=== PATIENT | female | born 1975 | race Caucasian/White ===

== ENCOUNTER 2023-08-24 12:02 | Emergency (ER) | payer OTHER, SELFPAY ==
[2023-08-24 12:11] VITALS: BP 157/101; PULSE 90; RESP 20; TEMP 36.9; O2SAT 98
--- NOTE | 2023-08-24 12:32 | ED.WOUNDLAC ---
HPI - Wound/Laceration General Chief Complaint: Wound/Laceration Stated Complaint: R forearm laceration Time Seen by Provider: 08/24/23 12:10 Source: patient Mode of arrival: ambulatory Limitations: no limitations History of Present Illness HPI narrative: This is a 48 year old female that presents to the ER for a laceration to the right forearm sustained just prior to arrival. Reports she accidentally cut it with a blade trying to cut plastic. Reports bleeding and pain to the area. Denies decreased ROM or numbness. Related Data Allergies Allergy/AdvReac Type Severity Reaction Status Date / Time ketorolac Allergy Intermediate Hives / Unverified 03/09/16 12:53 Red Face codeine AdvReac Intermediate Unverified 03/09/16 12:53 Review of Systems Review of Systems: CONSTITUTIONAL: Denies fever SKIN: Reports laceration NEUROLOGIC: Denies numbness, or weakness. All systems reviewed & are unremarkable except as noted in HPI and below PMFSH Past Medical History Medical History (Updated 08/24/23 @ 14:34 by Magali Boo PA-C) History of depression Social History Social History (Updated 08/24/23 @ 12:36 by Magali Boo PA-C) Smoking status: Current every day smoker Exam Narrative: GENERAL: Well-appearing, well-nourished, and in no acute distress. HEAD: Normocephalic, atraumatic. EYES: EOMI. EXTREMITIES: Normal range of motion in the right hand and wrist. No edema. Right forearm volar surface with 2.5 cm linear laceration into subcutaneous tissue SKIN: Warm, dry, no rash. NEURO: No focal deficits. Alert and oriented x3. PSYCH: Normal mood and affect Course Course Emergency Course: patient educated on wound care Vital Signs Vital signs: Vital Signs Temperature 98.4 F 08/24/23 12:11 Pulse Rate 90 08/24/23 12:11 Respiratory Rate 20 08/24/23 12:11 Blood Pressure 157/101 H 08/24/23 12:11 Pulse Oximetry 98 08/24/23 12:11 Temperature 98.4 F 08/24/23 12:11 Pulse Rate 90 08/24/23 12:11 Respiratory Rate 20 08/24/23 12:11 Blood Pressure 157/101 H 08/24/23 12:11 Pulse Oximetry 98 08/24/23 12:11 Procedures Laceration Laceration 1: Date: 08/24/23 Time: 14:36 Site: upper extremity Side (If applicable): right Size (cm): 2.5 Description: linear Depth: simple, single layer Local Anesthetic: lidocaine 1% and with epi Amount of anesthesia used (mL): 4 Pre-repair: wound explored and irrigated ====== Skin Level ====== Skin layer closed with: nylon Size (cm): 4-0 Number of sutures: 4 Technique: simple, interrupted ====== Subcutaneous Layer ====== ====== Muscle Layer ====== ====== Tendon Layer ====== MDM - Wound/Laceration MDM Narrative Medical decision making narrative: This is a 48-year-old female that presents to the emergency department for laceration to the right forearm sustained just prior to arrival. Patient's wound was irrigated and closed with sutures. She is neurovascularly intact. She was updated on tetanus vaccination. She was educated on further wound care. She is to follow up with primary provider. She was given warnings to return to the ER Differential Diagnosis Differential diagnosis: Likely laceration, abrasion and avulsion of skin Critical Care Time Critical Care Time Critical Care Time: No Discharge Plan Discharge Clinical Impression: Laceration Patient Disposition: Home, Self-Care Condition: Stable Instructions: Care For Your Stitches (ED), Laceration (ED) Additional Instructions: Return to the emergency department if you experience fever, redness or swelling of your wound, abnormal drainage from your wound, or any other symptoms that are concerning to you. Apply antibiotic ointment daily. Do not soak the wound. Clean with mild soap and water daily. take oral antibiotic as prescribed Follow-up with lilliana
[2023-08-24] MEDS: TETANUS,DIPHTHERIA,AC PERTUSSIS ADULT (0.5 ML) BOOSTRIX IM (12:54)
== END 2023-08-24 14:41 | disposition home or self-care (01) ==
PROVIDERS: Emergency Provider Physician Assistant
DX: S51.811A Laceration without foreign body of right forearm, initial encounter (principal); Z23 Encounter for immunization; F17.200 Nicotine dependence, unspecified, uncomplicated; W26.8XXA Contact with other sharp object(s), not elsewhere classified, initial encounter
CPT/HCPCS: 12001; 90471; 90715; 99283